=== PATIENT | female | born 1990 | race American Indian/Alaskan Native ===

== ENCOUNTER 2021-07-14 18:28 | Emergency (ER) | payer BC ==
[2021-07-14 20:44] VITALS: BP 120/90
[2021-07-14] MEDS ORDERED: CYCLOBENZAPRINE 10 MG TAB PO ONE (20:48)
[2021-07-14] MEDS ORDERED: ACETAMINOPHEN 500 MG TAB PO ONE (20:48)
[2021-07-14] MEDS ORDERED: IBUPROFEN 600 MG TAB PO ONE (20:48)
--- NOTE | 2021-07-14 20:48 | Emergency Department Report ---
ED Back Pain/Injury HPI - General Chief Complaint: Back Pain/Injury Stated Complaint: HEADACHES Source: patient Limitations: No Limitations - History of Present Illness Initial Comments: Patient is a 31-year-old -Polish female with no past medical history presents to the ED with complaint of acute onset persistent nontraumatic mid posterior thoracic pain persistently for the last 2 days. Patient states that although she performs occasional heavy lifting at work, she states that the lifting is a new is not unusual and that she has not lifted any heavy object at work in the last few days. Patient states the pain is constant, persistent and worse with any movement. Patient states that she has been taking [id number] pain medications with no relief. Patient denies dysuria, urinary frequency and urgency, chest pain, shortness of breath, traumatic injury, dizziness, syncope, hematuria, vaginal discharge, vaginal bleeding, fever, chills, abdominal pain, nausea and vomiting, numbness and tingling or weakness of lower extremities bilaterally. MD Complaint: back pain (Mid posterior thoracic pain) -: Sudden, days(s) (2) Similar Symptoms Previously: No Place: home Radiation: none Severity: severe Severity scale (0 -10): 7 Quality: sharp, aching Consistency: constant Improves With: none Worsens With: none Context: unknown Associated Symptoms: denies other symptoms. denies: confusion, weakness, chest pain, numbness, difficulty walking, cough, difficulty urinating, diaphoresis, constipation, headaches, abdominal pain, loss of appetite, malaise, nause a/vomiting, rash, seizure, shortness of breath, other - Related Data Previous Rx's Medication Instructions Recorded Last Taken Type Baclofen 20 mg PO Q12H PRN #24 tablet 07/14/21 Unknown Rx Naproxen 500 mg PO Q12H PRN #30 tablet 07/14/21 Unknown Rx traMADoL [Ultram] 50 mg PO Q6HR PRN #10 tablet 07/14/21 Unknown Rx Allergies Allergy/AdvReac Type Severity Reaction Status Date / Time No Known Allergies Allergy Unverified 07/14/21 20:47 ED Review of Systems ROS: Stated complaint: HEADACHES Other details as noted in HPI Constitutional: denies: chills, fever Eyes: denies: eye pain, eye discharge, vision change ENT: denies: ear pain, throat pain Respiratory: denies: cough, shortness of breath, wheezing Cardiovascular: denies: chest pain, palpitations Endocrine: no symptoms reported Gastrointestinal: denies: abdominal pain, nausea, diarrhea Genitourinary: denies: urgency, dysuria, discharge Musculoskeletal: back pain (Mid posterior thoracic pain), myalgia. denies: joint swelling, arthralgia Skin: denies: rash, lesions Neurological: denies: headache, weakness, paresthesias Psychiatric: denies: anxiety, depression Hematological/Lymphatic: denies: easy bleeding, easy bruising ED Past Medical Hx - Medications Home Medications: Home Medications Medication Instructions Recorded Confirmed Last Taken Type Baclofen 20 mg PO Q12H PRN #24 tablet 07/14/21 Unknown Rx Naproxen 500 mg PO Q12H PRN #30 tablet 07/14/21 Unknown Rx traMADoL [Ultram] 50 mg PO Q6HR PRN #10 tablet 07/14/21 Unknown Rx ED Physical Exam - General Limitations: No Limitations General appearance: alert, in no apparent distress - Head Head exam: Present: atraumatic, normocephalic, normal inspection - Eye Eye exam: Present: normal appearance, PERRL, EOMI Pupils: Present: normal accommodation - ENT ENT exam: Present: normal exam, normal orophraynx, mucous membranes moist, TM's normal bilaterally, normal external ear exam - Neck Neck exam: Present: normal inspection, full ROM - Respiratory Respiratory exam: Present: normal lung sounds bilaterally. Absent: respiratory distress, wheezes, rales, rhonchi, stridor, chest wall tenderness, accessory muscle use, decreased breath sounds, prolonged expiratory - Cardiovascular Cardiovascular Exam: Present: regular rate, normal rhythm, normal heart sounds. Absent: systolic murmur, diastolic murmur, rubs, gallop - GI/Abdominal GI/Abdominal exam: Present: soft, normal bowel sounds. Absent: tenderness, guarding, rebound, hyperactive bowel sounds, hypoactive bowel sounds, organomegaly - Extremities Exam Extremities exam: Present: normal inspection, full ROM, normal capillary refill - Back Exam Back exam: Present: normal inspection, full ROM, tenderness (Palpable mid posterior thoracic paraspinal musculoskeletal tenderness), muscle spasm, paraspinal tenderness. Absent: CVA tenderness (R), CVA tenderness (L), vertebral tenderness - Neurological Exam Neurological exam: Present: alert, oriented X3, CN II-XII intact, normal gait, reflexes normal - Psychiatric Psychiatric exam: Present: normal affect, normal mood - Skin Skin exam: Present: warm, dry, intact, normal color. Absent: rash ED Course Vital Signs 07/14/21 20:42 Temperature 98.9 F Respiratory 18 Rate Blood Pressure 120/90 ED Medical Decision Making - Lab Data Result diagrams: 07/14/21 20:50 07/14/21 20:50 - Medical Decision Making This is a 31-year-old -Polish female with no past medical history presents to the ED with complaint of acute onset persistent nontraumatic mid posterior thoracic pain persistently for the last 2 days. Patient states that although she performs occasional heavy lifting at work, she states that the lifting is a new is not unusual and that she has not lifted any heavy object at work in the last few days. Patient states the pain is constant, persistent and worse with any movement. Patient states that she has been taking [id number] pain medications with no relief. In the ED, patient is alert and oriented x3 and is not in any distress. Patient is hemodynamically stable. Lab test results were reviewed and are all nonactionable. Patient was treated for pain in the ED. Patient the history and physical exam findings and the unremarkable lab test results, patient symptoms are likely musculoskeletal muscle spasm or muscle strain of her mid posterior thoracic area. Patient was thereafter discharged home on pain medications and muscle relaxants and advised to follow-up with her primary care physician in 5 to 7 days for reevaluation or return to the ED immediately if symptoms get worse. - Differential Diagnosis Muscle spasm; muscle strain; kidney stone; UTI Critical care attestation.: If time is entered above; I have spent that time in minutes in the direct care of this critically ill patient, excluding procedure time. ED Disposition Clinical Impression: Strain of muscle and tendon of back wall of thorax, initial encounter, Spasm of thoracic back muscle Disposition: HOME / SELF CARE / HOMELESS Is pt being admited?: No Does the pt Need Aspirin: No Condition: Stable Instructions: Muscle Cramps and Spasms, [id number], Acute Back Pain, Adult, Muscle Strain, Qeak-yr-Hkhu, Thoracic Strain Rehab-SportsMed Additional Instructions: All lab test results were reviewed and are all nonactionable. Therefore take medications with food, drink plenty of fluids and follow-up with your primary care physician in 5 to 7 days for reevaluation. Return to the ED immediately if symptoms get worse. Prescriptions: Baclofen 20 mg PO Q12H PRN #24 tablet PRN Reason: Muscle Spasm Naproxen 500 mg PO Q12H PRN #30 tablet PRN Reason: Pain , Severe (7-10) traMADoL [Ultram] 50 mg PO Q6HR PRN #10 tablet PRN Reason: Pain Referrals: [facility] [Provider Group] - 7-10 days Forms: Work/School Release Form(ED) Time of Disposition: 21:46 Print Language: CYMRO
[2021-07-14 21:10] LABS: Basophils % (Auto) 0.9 % (0.0-1.8); Eosinophils # (Auto) 0.1 K/mm3 (0.0-0.4); Eosinophils % (Auto) 1.9 % (0.0-4.3); Hematocrit 40.1 % (30.3-42.9); Hemoglobin 13.4 gm/dl (10.1-14.3); Lymphocytes # (Auto) 1.9 K/mm3 (1.2-5.4); Lymphocytes % (Auto) 43.8 % (13.4-35.0); Mean Corpuscular HGB Conc 33 % (30-34); Mean Corpuscular Volume 80 fl (79-97); Monocytes # (Auto) 0.4 K/mm3 (0.0-0.8); Monocytes % (Auto) 9.4 % (0.0-7.3); Platelet Count 277 K/mm3 (140-440); Red Blood Count 5.04 M/mm3 (3.65-5.03); Red Cell Distribution Width 14.9 % (13.2-15.2)
[2021-07-14 21:18] LABS: Bacteria,Urine 1+ /HPF (Negative); Bilirubin,Urine NEG (Negative); Blood,Urine SM (Negative); Color,Urine Yellow (Yellow); Mucus,Urine FEW /HPF; Protein,Urine <15 mg/dL mg/dL (Negative); Urobilinogen,Urine < 2.0 mg/dL (<2.0); WBC,Urine < 1.0 /HPF (0.0-6.0)
[2021-07-14 21:30] LABS: Alanine Aminotransferase 11 units/L (7-56); Albumin 4.1 g/dL (3.9-5); Blood Urea Nitrogen 14 mg/dL (7-17); Calcium 9.4 mg/dL (8.4-10.2); Hemolysis Index 15
[2021-07-14 21:39] LABS: BUN/Creatinine Ratio 20
== END 2021-07-14 22:10 | disposition home or self-care (01) ==
LOC: ED 18:28
DX: S29.012A Strain of muscle and tendon of back wall of thorax, initial encounter (principal); M62.830 Muscle spasm of back; X58.XXXA Exposure to other specified factors, initial encounter; Y93.89 Activity, other specified; Y92.89 Other specified places as the place of occurrence of the external cause; Y99.8 Other external cause status
CPT/HCPCS: 36415; 80053; 81001; 84703; 85025; 99283